=== PATIENT | male | born 1980 | race Caucasian/White ===

== ENCOUNTER 2017-04-02 12:19 | Emergency (ER) | payer OTHER ==
[~2017-04-02] VITALS: Ht 193 cm; Wt 129.7 kg
[2017-04-02] MEDS ORDERED: MOTRIN800 MG PO (14:14)
[2017-04-02] MEDS ORDERED: FLEXERIL10 MG PO (14:14)
[2017-04-02 14:48] VITALS: BP 123/88
== END 2017-04-02 14:49 | disposition home or self-care (01) ==
LOC: EME 12:19
DX: S33.5XXA Sprain of ligaments of lumbar spine, initial encounter (principal); F17.200 Nicotine dependence, unspecified, uncomplicated; V89.2XXD Person injured in unspecified motor-vehicle accident, traffic, subsequent encounter
CPT/HCPCS: 99281; 99283; J1885